=== PATIENT | male | born 1960 | race Caucasian/White ===

== ENCOUNTER 2025-10-09 14:24 | Emergency (ER) | payer OTHER ==
[~2025-10-09] VITALS: Ht 188 cm; Wt 169.0 kg
[2025-10-09] MEDS ORDERED: OXYC20TA2 PO (14:42)
[2025-10-09] MEDS ORDERED: HOME MED LIST COMPLETE! XX SCH (16:20)
[2025-10-09] MEDS ORDERED: SEMA2PEN SQ (16:20)
[2025-10-09 16:45] LABS: BASO # 0.1 10^3/uL (0.0-0.2); BASO % 0.9 % (0.0-1.0); EOS # 0.1 10^3/uL (0.0-0.5); EOS % 0.8 % (0.0-3.0); LYMPH # 2.4 10^3/uL (1.5-5.0); LYMPH % 18.6 % (24.0-44.0); MONO # 1.8 10^3/uL (0.0-0.8); MONO % 13.8 % (2.0-8.0); NEUTROPHILS # 8.4 10^3/uL (1.5-8.5); NEUTROPHILS % 64.7 % (36.0-66.0); PLATELET COUNT, AUTOMATED 504 10^3/uL (150-450)
[2025-10-09] MEDS: ONDANSETRON 4MG/2ML VIAL IV ONE (17:05)
[2025-10-09 17:08] LABS: INR 1.18
[2025-10-09] MEDS: MORPHINE 4 MG/ML 1 ML VIAL IV ONE (17:08)
[2025-10-09] MEDS: HEPARIN SOD 5000 UNITS/ML 1 ML VIAL/SYRINGE IV ONE (17:09)
[2025-10-09 17:10] LABS: ALT/SGPT 33 U/L (7.0-40); AST/SGOT 49 U/L (<34); CALCIUM LEVEL 8.3 MG/DL (8.3-10.6); CARBON DIOXIDE LEVEL 29 MMOL/L (20-31); CHLORIDE LEVEL 97 MMOL/L (98-107); CREATININE FOR GFR 0.50 MG/DL (0.70-1.30); GLOMERULAR FILTRATION RATE > 90.0 (>49); POTASSIUM SERUM 4.1 MMOL/L (3.5-5.1); SODIUM LEVEL 137 MMOL/L (136-145)
[2025-10-09] MEDS: HEPARIN DRIP 25,000 UNITS in IV 1 EA IV SCH (17:13)
[2025-10-09] MEDS: APIXABAN 5 MG TAB PO ONE (23:01)
[2025-10-10] MEDS: APIXABAN 5 MG TAB PO SCH (09:22)
[2025-10-10] MEDS ORDERED: ELIQ5TAB PO (11:06)
[2025-10-10 12:12] VITALS: BP 146/65; TEMP 99; O2SAT 93
== END 2025-10-10 12:13 | disposition home or self-care (01) ==
LOC: M ED 14:24 → EDBD 14:24 → M ED 10-10 12:13
DX: I70.261 Atherosclerosis of native arteries of extremities with gangrene, right leg (principal); E11.52 Type 2 diabetes mellitus with diabetic peripheral angiopathy with gangrene; E66.01 Morbid (severe) obesity due to excess calories; Z79.01 Long term (current) use of anticoagulants; Z79.899 Other long term (current) drug therapy
CPT/HCPCS: 80048; 80076; 85025; 85610; 85730; 93041; 94760; 96365; 96366; 96375; 97161; 97530; 99285; J2405